=== PATIENT | female | born 1990 | race Caucasian/White ===

== ENCOUNTER 2020-09-22 21:04 | Emergency (ER) | payer OTHER ==
[~2020-09-22 21:04] MED LIST: BUPRENORPHINE HC8 MG SL; COLACE 100MG C100 MG PO; IBUPROFEN600 MG PO; PRENATAL VITAM1 EAC8 PO; TYLENOL325 M1 PO
[2020-09-22 23:23] LABS: HEMOGLOBIN 10.9 gm/dl (12.3-15.3); RED BLOOD COUNT 3.6 M/UL (4.00-5.10); WHITE BLOOD COUNT 7.1 K/UL (4.5-11.0)
[2020-09-22] MEDS ORDERED: LODINE CAP 300300 MG PO (23:30)
[2020-09-22] MEDS ORDERED: NORFLEX 100 MG100 MG PO (23:30)
[2020-09-22 23:40] LABS: BUN/CREATININE RATIO 25 (0-10)
== END 2020-09-22 23:52 | disposition home or self-care (01) ==
LOC: ER1 21:04
PROVIDERS: Physician Assistant
DX: S30.0XXA Contusion of lower back and pelvis, initial encounter (principal); F17.210 Nicotine dependence, cigarettes, uncomplicated; Z79.899 Other long term (current) drug therapy; W10.9XXA Fall (on) (from) unspecified stairs and steps, initial encounter
CPT/HCPCS: 72193; 72220; 73502; 80048; 85025; 99284; Q9967